=== PATIENT | female | born 1995 | race Caucasian/White ===

== ENCOUNTER 2018-11-11 11:09 | Emergency (ER) | payer MEDICAID ==
[~2018-11-11] VITALS: Ht 167.6 cm; Wt 57.7 kg
[2018-11-11 11:16] VITALS: Ht 167.6 cm; Wt 57.7 kg
[2018-11-11 12:04] LABS: BASOPHILS 0.2 % (0-2); EOSINOPHILS 2.5 % (0-7); HEMATOCRIT 35.3 % (36.0-48.0); HEMOGLOBIN 12.7 g/dL (12-16); IMMATURE GRANULOCYTES 0.2 % (0-5); LYMPHOCYTES 20.4 % (15-50); MCH 30.8 pg (26.0-34.0); MCV 85.5 fL (80.0-100.0); MEAN PLATELET VOLUME 9.9 fL (7.4-10.4); MONOCYTES 7.9 % (2-11); NEUTROPHILS 68.8 % (40-80); PLATELET COUNT 159 10x3/uL (130-400); RBC 4.13 10x6/uL (4.00-5.40); WBC 4.3 10x3/uL (4.8-10.8)
[2018-11-11 12:24] LABS: ALBUMIN 3.6 g/dL (3.4-5.0); ALKALINE PHOSPHATASE 27 U/L (46-116); ALT (SGPT) 15 U/L (10-68); BILIRUBIN - TOTAL 0.24 mg/dL (0.2-1.3); CALC OSMOLALITY 264 mosm/kg (275-300); CALCIUM 8.9 mg/dL (8.5-10.1); CARBON DIOXIDE 24.9 mmol/L (21.0-32.0); CHLORIDE - SERUM 102 mmol/L (98-107); CREATININE - SERUM 0.5 mg/dL (0.6-1.3); GLUCOSE 76 mg/dL (74-106); POTASSIUM - SERUM 3.3 mmol/L (3.5-5.1); PROTEIN - SERUM 7.2 g/dL (6.4-8.2); SODIUM 134 mmol/L (136-145); UREA NITROGEN 7 mg/dL (7-18); eGFR NON AFRICAN AMERICAN > 90 mL/min (90-120)
[2018-11-11 12:37] LABS: APPEARANCE HAZY (CLEAR); COLOR YELLOW (YELLOW)
[2018-11-11 12:38] LABS: AMORPHOUS SEDIMENT <1+ /lpf (NONE SEEN); BACTERIA FEW /hpf (NONE SEEN); BILIRUBIN NEGATIVE (NEGATIVE); EPITHELIAL CELLS 0-5 /hpf (0-5); GLUCOSE NEGATIVE (NEGATIVE); KETONE NEGATIVE (NEGATIVE); MUCUS <1+ /lpf (NONE SEEN); NITRITE NEGATIVE (NEGATIVE); PROTEIN TRACE mg/dL (NEGATIVE); RED CELLS - URINE RARE /hpf (0-5); UROBILINOGEN NORMAL (NORMAL); WHITE CELLS - URINE 0-5 /hpf (0-5)
[2018-11-11 12:48] LABS: HCG - QUANTITATIVE (MATERNAL) 133034 mIU/mL
[2018-11-11] MEDS ORDERED: ZOFRAN ODT4 MG/UDTAB PO (13:53)
[2018-11-11 14:03] VITALS: BP 122/60
== END 2018-11-11 14:03 | disposition home or self-care (01) ==
LOC: D.ER 11:09
PROVIDERS: Emergency Medicine
DX: O26.891 Other specified pregnancy related conditions, first trimester (principal); Z3A.12 12 weeks gestation of pregnancy; R10.30 Lower abdominal pain, unspecified

== ENCOUNTER → 2019-04-23 11:12 | Outpatient (CLI) | payer MEDICAID ==
[2018-11-11 11:16] VITALS: BMI 20.5
[~2019-04-23 11:12] MED LIST: ZOFRAN ODT4 MG/UDTAB PO
== END | disposition home or self-care (01) ==
LOC: D.LDO 11:12
PROVIDERS: ATTEND Obstetrics & Gynecology
DX: O36.8130 Decreased fetal movements, third trimester, not applicable or unspecified (principal); Z3A.33 33 weeks gestation of pregnancy

== ENCOUNTER 2019-05-14 07:29 | Inpatient (IN) | payer SELFPAY ==
[~2019-05-14] VITALS: Ht 167.6 cm; Wt 70.8 kg
[2019-05-14 07:50] VITALS: BP 131/72; Ht 167.6 cm; Wt 70.8 kg
--- NOTE | 2019-05-14 08:08 | NUR ---
DR GRAJEDA NOTIFIED AND REVIEWED PT;s BEHAVIOR AND ASSESSMENT RESULTS. PT IS A LOW RISK PER DR GRAJEDA. DR GRAJEDA STATED TO GIVE RESOURCES TO PT AT TIME OF DISCHARGE. NO FURTHER ORDERS AT THIS TIME. RESOURCES REVIEWED WITH PT AND SHE VERBALIZED UNDERSTANDING.
[2019-05-14 09:02] LABS: HEMATOCRIT 31.2 % (36.0-48.0); HEMOGLOBIN 11.2 g/dL (12-16); MCHC 35.9 g/dL (31.0-37.0); MCV 86.4 fL (80.0-100.0); MEAN PLATELET VOLUME 10.2 fL (7.4-10.4); RBC 3.61 10x6/uL (4.00-5.40); RDW 13.6 % (11.5-14.5); WBC 11.5 10x3/uL (4.8-10.8)
--- NOTE | 2019-05-14 19:45 | NUR ---
PT LAYING ON RIGHT SIDE IN SEMI-FOWLERS POSITION CONVERSING AND GIGGLING WITH SIGNIFICANT OTHER. VSS. DENIES PAIN. FUNDUS FIRM, MIDLINE AND U1 WITH SCANT RUBRA LOCHIA, NO CLOTS NOTED. SHIFT ASSESSMENT COMPLETED PER FLOWSHEET. REPORTS THAT SHE JUST VOIDED "A FEW MINUTES AGO" WITHOUT DIFFICULTY. 2+ BILATERAL LABIAL EDEMA NOTED. REFUSES ICE PACK AT THIS TIME. EDUCATED ON PP CARE, VERBALIZES UNDERSTANDING. QUESTIONS REGARDING ANSWERED AND PT ENCOURAGED TO CONTINUE TO ATTEMPT TO BREASTFEED. 1+ BLE EDEMA NOTED, PT REPROTS THAT SHE FEELS EDEMA TO BLE HAS IMPROVED. EDUCATED ON BREAST AND NIPPLE CARE WELL DIET TO ASSIST WITH BREAST FEEDING. VERBALIZES UNDERSTANDING. CRANBERRY JUICE, EXTRA BLANKETS, AND LINEN FOR SIGNIFICANT OTHER PROVIDED. DENIES ADDITIONAL NEEDS. BED IN LOW POSITION WITH UPPER SIDE RAILS RAISED X2. CALL LIGHT AND PHONE WITHIN REACH. WILL CONTINUE TO MONITOR AND ASSIST PRN.
[2019-05-14 20:01] VITALS: BP 118/67
--- NOTE | 2019-05-14 20:21 | NUR ---
DR. EASLEY AT BEDSIDE DISCUSSING PLAN OF CARE FOR AND ANSWERING PT QUESTIONS.
--- NOTE | 2019-05-14 20:33 | NUR ---
TUX AND DERMAPLAST PROVIDED, INSTRUCTED ON USE, VERBALIZES UNDERSTANDING AND REPORTS THAT SHE WILL CALL FOR ASSISTANCE PRN. CONTINUES TO DENY PAIN. SIGNIFICANT OTHER REMAINS AT BEDSIDE, SUPPORTIVE AND ATTENTIVE TO PT. BED IN LOW POSITION WITH UPPER SIDE RAILS RAISED X2. CALL LIGHT AND PHONE WITHIN REACH. WILL CONTINUE TO MONITOR.
--- NOTE | 2019-05-14 21:38 | NUR ---
UP TO VOID. REINFORCED TEACHING ON USE OF DERMAPLAST AND TUX PADS, DEMONSTRATED UNDERSTANDING. C/O PERINEAL SORENESS AND ABD CRAMPING /, DISCUSSED NORCO AND MOTRIN ORDERS. REQUESTS MOTRIN AT THIS TIME, EDUCATED ON MEDICATION THAT THEY WERE ORDERED PRN MEANING SHE HAD TO ASK FOR THEM, VERBALIZES UNDERSTANDING. DENIES ADDITIONAL NEEDS. REFUSES SCD'S. JACLYN DUEÑAS DIAL BRUSHER AT BEDSIDE WITH .
--- NOTE | 2019-05-14 22:18 | NUR ---
PAIN REASSESSMENT COMPLETED. DENIES PAIN. CRACKERS AND PEANUT BUTTER PROVIDED PER PT REQUEST. DENIES ADDITIONAL NEEDS. BONDING WITH INFANT AT THIS TIME. BED IN LOW POSITION WITH UPPER SIDE RAILS RAISED X2. CALL LIGHT AND PHONE WITHIN REACH. WILL CONTINUE TO MONITOR.
--- NOTE | 2019-05-15 00:08 | NUR ---
UP TO SHOWER. INSTRUCTED ON USE BATHROOM CALL LIGHT. VERBALIZES UNDERSTANDING. DENIES DIZZINESS. SIGNIFICANT OTHER IN ROOM, PT STATES THAT HE CAN ASSIST PRN. WILL CONTINUE TO MONITOR.
--- NOTE | 2019-05-15 00:36 | NUR ---
OUT OF SHOWER. WATCHING TV IN SEMIFOWLWERS POSITION. RESTING QUIETLY IN OPEN CRIB AT BEDSIDE. PT DENIES NEEDS. SIGNIFICANT OTHER REMAINS AT BEDSIDE, SUPPORTIVE AND ATTENTIVE TO PT AND INFANT NEEDS. BED IN LOW POSITION WITH UPPER SIDE RAILS RAISED X2. CALL LIGHT AND PHONE WITHIN REACH. WILL CONTINUE TO MONITOR AND ASSIST PRN.
--- NOTE | 2019-05-15 02:09 | NUR ---
LAYING ON LEFT SIDE WITH EYES CLOSED, DID NOT OPEN EYES WHEN DOOR OPEN. EASILY AROUSES TO VOICE. INFANT IN ARMS. REINFORCED EDUCATION ON WHEN SHE IS SLEEPING INFANT MUST BE IN OPEN CRIB AND EDUCATED ON DANGERS OF CO-SLEEPING, VERBALIZES UNDERSTANDING. PLACED IN OPEN CRIB AT BEDSIDE, SWADDLED IN 2 BLANKETS, HAT ON, RESPIRATIONS REGULAR AND UNLABORED, NO S/S OF DISTRESS NOTED. PT DENIES PAIN AND NEEDS. BED IN LOW POSITION WITH UPPER SIDE RAILS RAISED X2. CALL LIGHT AND PHONE WITHIN REACH. WILL CONTINUE TO MONITOR. SIGNIFICANT OTHER RESTING ON COUCH AT BEDSIDE.
--- NOTE | 2019-05-15 04:03 | NUR ---
ROUNDS MADE. C/O LT HAND BEING SORE, REQUEST PIV BE REMOVED, PIV D/C'D PER PT REQUEST, TIP INTACT, BANDAID PLACED OVER SITE. ICE WATER PROVIDED. DENIES ADDITIONAL NEEDS. BED IN LOW POSITION WITH UPPER SIDE RAILS RAISED X2. CALL LIGHT AND PHONE WITHIN REACH. RESTING IN OPEN CRIB AT BEDSIDE. SIGNIFICANT OTHER RESTING ON COUCH AT BEDSIDE. WILL CONTINUE TO MONITOR.
[2019-05-15 06:09] LABS: RAPID PLASMA REAGIN Non Reactive (Non Reactive)
--- NOTE | 2019-05-15 06:34 | NUR ---
SITTING IN HIGH FOWLERS POSITION WITH IN ARMS. DENIES NEEDS AND PAIN AT THIS TIME. PLACED IN OPEN CRIB PER PT REQUEST. BED IN LOW POSITION WITH UPPER SIDE RAILS RAISED X2. CALL LIGHT AND PHONE WITHIN REACH. WILL CONTINUE TO MONITOR AND ASSIST PRN.
[2019-05-15 06:53] LABS: BASOPHILS 0.2 % (0-2); EOSINOPHILS 1.2 % (0-7); HEMATOCRIT 28.1 % (36.0-48.0); HEMOGLOBIN 9.7 g/dL (12-16); IMMATURE GRANULOCYTES 0.7 % (0-5); LYMPHOCYTES 20.1 % (15-50); MCH 30.7 pg (26.0-34.0); MCHC 34.5 g/dL (31.0-37.0); MEAN PLATELET VOLUME 10.3 fL (7.4-10.4); MONOCYTES 12.6 % (2-11); NEUTROPHILS 65.2 % (40-80); PLATELET COUNT 139 10x3/uL (130-400); RBC 3.16 10x6/uL (4.00-5.40); RDW 13.8 % (11.5-14.5)
[2019-05-15 07:36] LABS: MCV 88.9 fL (80.0-100.0); WBC 8.6 10x3/uL (4.8-10.8)
--- NOTE | 2019-05-15 08:20 | NUR ---
HIS RN TO ROOM FOR PT CHECK. NURSERY RN TO ROOM ASSISTING WITH BF. FIONA PLASENCIA FOR SHIFT ASSESSMENT.
[2019-05-15 09:03] VITALS: BP 125/82
--- NOTE | 2019-05-15 09:03 | NUR ---
THIS RN TO ROOM FOR SHIFT ASSESSMENT. PT SITTING UP IN BED WITH INFANT ON LAP, AAOx3. SHIFT ASSESSMENT COMPLETED, VSS, SEE FLOWSHEET FOR DOC. PT DENIES PAIN AT THIS TIME. FF, ML, U/2. SMALL RUBRA LOCHIA WITHOUT CLOTS. PT REPORTS PASSING LARGE CLOT WHEN UP TO BR, APPROX EGG-SIZED. PT STATES SHE FLUSHED IT, INSTRUCTED TO CALL NURSE FOR LARGE CLOTS OR SOAKING PERIPAD PER HOUR. UNDERSTANDING VERBALIZED. POC DISCUSSED. PT DENIES NEEDS AT THIS TIME. ANASTASIA NEVILLE TO ROOM AT THIS TIME DISCUSSING PER PT REQUEST. WILL CONT TO MONITOR.
--- NOTE | 2019-05-15 10:23 | NUR ---
THIS RN TO ROOM FOR PT CHECK. PT SITTING UP IN BED, ATTEMPTING TO LATCH INFANT TO BREAST. PT TEARFUL, SIG OTHER AT BEDSIDE COMFORTING PT. ANASTASIA NEVILLE IN NURSERY NOTIFIED AND TO ROOM FOR ASSIST. PT C/O CRAMPING RATED 2-3/10, REQUESTING MOTRIN FROM PAIN. MOTRIN ADMIN, FRESH ICE WATER GIVEN. PT DENIES FURTHER NEEDS. SRUx2, CL IN REACH, WILL CONT TO MONITOR.
--- NOTE | 2019-05-15 11:29 | NUR ---
Jovanna Perry 05/[birth year] LE@9:00 S: Patient states when she tries latching she will get fussy like she doesn't want it. She tires to latch baby first then provides formula. Verbalized she does want to breastfeed, just nervous about what if she does something wrong or isn't doing it right. Verbally agrees to ask for help with latching for infant next feeding. Verbalized she understands how to hold infant for feeding and will contact nursing staff for help with . O: Congratulated on delivery and asked how can I help you with . Tell me about your experience with while in the hospital. Informed patient takes time, practice, and patience. Both mother and infant are learning how to , this will require time and lots of practice. Explained normal feeding patterns of a , supply and demand, breastmilk composition, how to hold for feeding ( positions), how to verify if infant latch is correct, and the importance of asking for help with . It is normal for infant to suck for a few minutes, stop, and then repeat this process through out being latched. It is normal for your breast to feel sensitive when latch but you shouldn't be in pain. When infant is placed to the breast for every feeding your body will adjust to make what needs. Informed patient CLC will return this afternoon to check on her regarding . A: Patient nervous about infant, needs help with latching. P: Continue to promote during hospital visit. Pilar Garcia, JOHN
--- NOTE | 2019-05-15 12:00 | NUR ---
THIS RN TO ROOM FOR PT CHECK AND PAIN REASSESS. PT SITTING UP IN BED, VISTING WITH FAMILY MEMBER. PT DENIES PAIN OR ANY NEEDS. SRUx2, CL IN REACH.
--- NOTE | 2019-05-15 13:18 | NUR ---
Jovanna Perry 05/15/[birth year] Due to patients concern with latching and will get enough at the breast. [facility] works for [facility] [employer] and provided Jovanna, who is a WIC participate with a new electric breast pump. Provided warranty card for pump and explained/showed how to use and clean. Encouraged patient to practice skin to skin to help with infant led . Try nursing every 2-3 or as needed when showing feeding cues. If doesn't latch you may pump both breast for 15 minutes, 20 max if milk is still following after 15 minutes. If infant doesn't latch and you have to pump only. To help establish your supply try pumping at least 8-10 times in 24 hours. Any amount of pumping is better then not pumping. Just remember supply and demand, what is taking out, your body will make more of. Pumping will help with stimulation to establish your milk supply. Speak with hospital nursery staff on recommend amount of milk to provide for every feeding if given in a bottle. Provided handout on storing breastmilk, feeding cues, engorgement, and encouraged to address any feeding concerns regarding or formula with infant nurse. [facility] provided work cell and office number for assistance. Plan created for patient to visit with [facility] on Saturday or Saturday of next week regarding , latching . JOHN Andre
--- NOTE | 2019-05-15 13:55 | NUR ---
PT SIG OTHER TO DESK WITH PT REQUEST FOR APPLE JUICE. THIS RN TO ROOM. PT PROVIDED WITH APPLE JUICE REQUESTED. MMR VACCINE DISCUSSED PER RUBELLA NONIMMUNE STATUS AND MMR VACCINE INFO SHEET GIVEN. PT STATES SHE WOULD LIKE VACCINE PRIOR TO DISCHARGE TODAY. DENIES PAIN OR FURTHER NEEDS AT THIS TIME. SRUx2, CL IN REACH. WILL CONT TO MONITOR.
[2019-05-15] MEDS ORDERED: IBUPROFEN600 MG PO (15:49)
[2019-05-15] MEDS ORDERED: HYDROCODON-ACE1 EAC7 PO (15:49)
--- NOTE | 2019-05-15 16:30 | NUR ---
THIS RN TO ROOM FOR MMR VACCINE AND D/C INSTRUCTIONS. MMR ADMIN SC TO PT'S UPPER LEFT ARM, SEE EMAR FOR DOC. DISCHARGE INSTRUCTIONS GIVEN ALONG WITH WRITTEN PRESCRIPTIONS PROVIDED BY DR SHIRLEY. PT INSTRUCTED TO CALL [facility] SATURDAY TO SCHEDULE 4 WEEK PP FOLLOW -UP CATHLEEN. UNDERSTANDING VERBALIZED. PT SIGNS D/C INSTRUCTIONS. PT REFUSES WHEELCHAIR OUT, STATES SHE IS GOING TO EAT DINNER FIRST BEFORE LEAVING UNIT.
--- NOTE | 2019-05-15 16:47 | NUR ---
PT AMBULATES OFF UNIT WITH SIG OTHER AND BUCKLED IN CARSEAT, FAMILY MEMBER TO DRIVE HOME.
== END 2019-05-15 16:47 | disposition home or self-care (01) | DRG 807 ==
LOC: D.LDO 07:29 → D.LD 08:49
PROVIDERS: ADMIT Obstetrics & Gynecology; ATTEND Obstetrics & Gynecology
PROC: 10E0XZZ Delivery of Products of Conception, External Approach (ICD-10-PCS; principal; 2019-05-14)
DX: O99.334 Smoking (tobacco) complicating childbirth (principal); Z37.0 Single live birth; Z3A.38 38 weeks gestation of pregnancy; O70.0 First degree perineal laceration during delivery